=== PATIENT | male | born 1980 | race Caucasian/White ===

== ENCOUNTER → 2017-09-24 | Outpatient (CLI) | payer OTHER | LOC: M RAD 07:46 | DX: R07.9 Chest pain, unspecified (principal); R06.02 Shortness of breath; J98.11 Atelectasis | CPT/HCPCS: 71046 ==

== ENCOUNTER 2017-12-02 19:32 | Emergency (ER) | payer OTHER ==
[2017-12-02] MEDS: CLINDAMYCIN 150 MG CAP PO (23:29)
[2017-12-02] MEDS: NORCO 5/325MG TABLET (BULK FOR ED) PO (23:30)
== END 2017-12-02 23:30 | disposition home or self-care (01) ==
LOC: M ED 19:32
DX: L03.116 Cellulitis of left lower limb (principal)
CPT/HCPCS: 93971

== ENCOUNTER 2019-04-29 12:33 | Emergency (ER) | payer OTHER ==
[~2019-04-29] VITALS: Ht 177.8 cm; Wt 111.3 kg
[~2019-04-29 12:33] MED LIST: CLEO300C2 PO; HYDR-3715 PO
[2019-04-29 13:09] LABS: BASO % 0.6 % (0.0-1.0); EOS # 0.1 10^3/uL (0.0-0.5); EOS % 0.9 % (0.0-3.0); HEMOGLOBIN 15.3 g/dl (13.5-17.5); LYMPH # 1.9 10^3/uL (1.5-5.0); LYMPH % 29.2 % (24.0-44.0); MEAN CORPUSCULAR HEMOGLOBIN 30.4 pg (27.0-33.0); MEAN CORPUSCULAR VOLUME 89.3 fl (80.0-96.0); MONO # 0.5 10^3/uL (0.0-0.8); MONO % 7.3 % (0.0-5.0); NEUTROPHILS # 4.1 10^3/uL (1.5-8.5); NEUTROPHILS % 61.8 % (36.0-66.0); PLATELET COUNT, AUTOMATED 290 10^3/uL (150-450); RED BLOOD COUNT 5.04 10^6/uL (4.30-6.10); WHITE BLOOD COUNT 6.6 10^3/uL (4.0-10.0)
[2019-04-29 13:34] LABS: ALBUMIN 3.9 GM/DL (3.2-5.2); BILIRUBIN,DIRECT 0.1 MG/DL (0.0-0.2); BILIRUBIN,TOTAL 0.4 MG/DL (0.2-1.0); TOTAL PROTEIN 7.8 GM/DL (6.4-8.2)
--- NOTE | 2019-04-29 13:35 | REP ---
Portable chest, 04/29/2019, single AP view with the patient upright: Comparison is 09/24/2017. The lung meehan are clear. The cardiac size is normal. The harry, mediastinum, and skeletal structures are unremarkable. There is minor parenchymal scarring in the left costophrenic angle, unchanged. Impression: Negative portable chest. There is no interval change. Electronically Signed by Gorge Gillis MD 04/29/2019 01:27 P
[2019-04-29 13:40] LABS: BLOOD UREA NITROGEN 13 MG/DL (7-18); CALCIUM LEVEL 9.3 MG/DL (8.5-10.1); CARBON DIOXIDE LEVEL 29 MEQ/L (21-32); CHLORIDE LEVEL 106 MEQ/L (98-107); CK-MB VALUE MASS < 1.0 NG/ML (<3.6); CPK CREATINE PHOSPHOKINASE 130 U/L (39-308); CREATININE FOR GFR 1.02 MG/DL (0.70-1.30); GLOMERULAR FILTRATION RATE > 60.0 (>60); GLUCOSE, FASTING 92 MG/DL (70-100); MB/CK RELATIVE INDEX 0.77 (< OR =4); SODIUM LEVEL 140 MEQ/L (136-145); TROPONIN I < 0.02 NG/ML (< 0.10)
[2019-04-29 14:50] VITALS: BP 156/90
--- NOTE | 2019-04-29 19:36 | ECGEPIP ---
[facility] - ED Test Date: 2019-04-29 Pat Name: SAWYER DAVIES Department: Room: - Gender: Male Project Lead: : 1980 Requested By: Pippa Nobles Order Number: [id number] Reading MD: Bolivar Bain Measurements Intervals Barnhart Rate: 64 P: 32 MN: 170 QRS: 4 QRSD: 108 T: 1 QT: 383 QTc: 397 Interpretive Statements SINUS RHYTHM MODERATE VOLTAGE CRITERIA FOR LVH, CONSIDER NORMAL VARIANT MODERATE INTRAVENTRICULAR CONDUCTION DELAY NO PRIORS FOR COMPARISON Electronically Signed on 04-29-2019 19:36:27 EDT by Bolivar Bain
== END 2019-04-29 14:52 | disposition home or self-care (01) ==
LOC: M ED 12:33
DX: R07.89 Other chest pain (principal); I45.89 Other specified conduction disorders; Z87.442 Personal history of urinary calculi; Z82.49 Family history of ischemic heart disease and other diseases of the circulatory system

== ENCOUNTER → 2023-11-27 | Outpatient (CLI) | payer OTHER ==
[2023-11-27 13:33] LABS: CHOLESTEROL RISK RATIO 4.79 (<5); HDL CHOLESTEROL 35.9 MG/DL (>40); LDL CHOLESTEROL 115.7 MG/DL (<100); NON-HDL-C 136.1 MG/DL
== END ==
LOC: M WUC 09:01
PROVIDERS: ATTEND Physician Assistant
DX: I10 Essential (primary) hypertension (principal)